=== PATIENT | male | born 1960 | race Caucasian/White ===

== ENCOUNTER 2019-04-14 20:46 | Inpatient (IN) | payer MEDICARE, MEDICAID ==
[~2019-04-14] VITALS: Ht 172.7 cm; Wt 68.5 kg
--- NOTE | 2019-04-14 21:03 | NUR ---
Patient bib [facility] ambulance for med cl to [facility]. Patient is coming from [facility]. A/Ox3. Speech is clear, speaks in complete sentences. No neuro deficits. REspiratory even and unlabored, no cough no sob. No cardiovascular distress noted, all pulses palpable. Denies any n/v/d Patient in bed at lowest positoin, sr upx2, call light within reach. Fall precautions implemented per protocol. Spoke to radha Matthews, and she stated that there are no available sitters.
[2019-04-14] MEDS ORDERED: CHLO25CA22 PO (21:13)
[2019-04-14] MEDS ORDERED: FOLI1TAB16 PO (21:13)
[2019-04-14] MEDS ORDERED: BLOO-140 IN (21:13)
[2019-04-14] MEDS ORDERED: THIA100T88 PO (21:13)
[2019-04-14] MEDS ORDERED: MULT1TAB73 PO (21:13)
[2019-04-14] MEDS ORDERED: ESCI10TA PO (21:13)
[2019-04-14] MEDS ORDERED: BENA10TA11 PO (21:13)
--- NOTE | 2019-04-14 22:42 | NUR ---
HENNY Wooten, here for evaluation
--- NOTE | 2019-04-15 00:31 | NUR ---
Pt. admitted to MHU , under care of Dr. Savage/Dr. Julio Cesar Love. 5150 Hold DTS. Belongs List completed. MRSA swab done.
--- NOTE | 2019-04-15 01:20 | NUR ---
Waiting for admission paperwork. Pt appears in no apparent distress. 1:1 sitter (security) at bedside.
[2019-04-15] MEDS ORDERED: ACETAMINOPHEN 325 MG TABLET PO PRN (02:15)
[2019-04-15] MEDS ORDERED: LORAZEPAM 0.5 MG TABLET PO PRN (02:15)
[2019-04-15] MEDS ORDERED: TEMAZEPAM 7.5 MG CAPSULE PO PRN (02:15)
[2019-04-15] MEDS ORDERED: BLOOD SUGAR DIAGNOSTIC 1 EACH STRIP VI ONE (02:15)
[2019-04-15] MEDS ORDERED: MAGNESIUM HYDROXIDE 30 ML LIQUID UDC PO PRN (02:15)
[2019-04-15] MEDS ORDERED: MAG HYDROX/AL HYDROX/SIMETH 30 ML LIQUID UDC PO PRN (02:15)
--- NOTE | 2019-04-15 03:19 | NUR ---
received to care, on a 72 hour hold for danger to self, from the emergency room, a transfer from [facility]. according to the chart, he moved here from [place], 3 months ago, to be closer to his 2 brothers. he lives alone, in a apartment, with a aircraft part assembler caregiver, who found him down at home, after apparently overdosing on at least a double dose of his insulin, and stating he wanted to . upon arrival at [facility], continued to state that he wanted to , and acknowledged at many times his depression, which worsened when he lost his legs, due to diabetes, 4 years ago. upon arrival on the unit, he appeared confused. had no recollection of where he was, or why he was here. upon further questioning, he did admit to being depressed, and suicidal, but denied the actual suicide attempt. PRN medication was offered for anxiety, but he declined. he is currently up in [facility] for safety monitoring by staff. no distress noted. will continue to monitor closely.
--- NOTE | 2019-04-15 06:00 | NUR ---
slept 2.25 hours. remains asleep. no distress noted.
[2019-04-15] MEDS ORDERED: LORAZEPAM 1 MG TABLET PO PRN (07:15)
[2019-04-15 07:30] VITALS: BP 164/69
[2019-04-15] MEDS: ESCITALOPRAM OXALATE 10 MG TABLET PO SCH (08:38)
[2019-04-15] MEDS ORDERED: DEXTROSE 50% 50 ML DISP.SYRIN IV PRN (10:15)
[2019-04-15] MEDS: BLOOD SUGAR DIAGNOSTIC 1 EACH STRIP VI SCH ×3 (12:07→20:50)
[2019-04-15] MEDS: INSULIN REGULAR, HUMAN 300 UNIT/3 ML VIAL SQ PRN ×2 (12:15→16:35)
[2019-04-15 15:50] VITALS: BP 150/82
--- NOTE | 2019-04-15 16:52 | NUR ---
Initial Discharge Planning: Patient currently resides at home [[address] [address]; [phone]] with his brother Adam Sue [[phone]]. Per brother Adam, patient can benefit from continued care upon discharge and discussed group home home option of [facility] [[address] [place] [address]; ]. Patient verbalized wanting to return home. herbarium worker will continue to meet with patient, and collaborate with patient, family, and MD on a safe and proper discharge plan.
[2019-04-15 19:44] VITALS: BP 143/83
[2019-04-15] MEDS: INSULIN GLARGINE,HUM 300 UNITS/3 ML CARTRIDGE SQ SCH (20:53)
[2019-04-15] MEDS: SIMVASTATIN 20 MG TABLET PO SCH (20:54)
[2019-04-15] MEDS: BENAZEPRIL HCL 10 MG TABLET PO SCH (20:55)
--- NOTE | 2019-04-16 05:40 | NUR ---
Patient slept 8.30 hours. Shower given this am.
[2019-04-16] MEDS: BLOOD SUGAR DIAGNOSTIC 1 EACH STRIP VI SCH ×4 (06:15→20:26)
[2019-04-16 07:30] VITALS: BP 132/75
[2019-04-16 07:47] LABS: CREATININE 1.2 mg/dL (0.6-1.3); PHOSPHOROUS 4.1 mg/dL (2.5-4.9); POTASSIUM 4.2 mmol/L (3.5-5.1)
[2019-04-16 07:52] LABS: BASOPHILS # (AUTO) 0.1 K/uL (0.0-8.0); BASOPHILS % (AUTO) 0.9 % (0.0-2.0); EOSINOPHILS # (AUTO) 0.3 K/uL (0.0-0.7); EOSINOPHILS % (AUTO) 3.1 % (0.0-7.0); HEMATOCRIT 45.5 % (36.7-47.1); HEMOGLOBIN 15.6 g/dL (12.5-16.3); LYMPHOCYTES # (AUTO) 1.7 K/uL (20.0-40.0); LYMPHOCYTES % (AUTO) 14.8 % (20.5-51.5); MEAN CORPUSCULAR HEMOGLOBIN 28.8 uug (23.8-33.4); MEAN CORPUSCULAR HGB CONC 34 g/dL (32.5-36.3); MEAN CORPUSCULAR VOLUME 84.2 fL (73.0-96.2); MONOCYTES # (AUTO) 0.7 K/uL (2.0-10.0); NEUTROPHILS # (AUTO) 8.6 K/uL (1.8-8.9); NEUTROPHILS % (AUTO) 75.2 % (38.5-71.5); PLATELET COUNT (AUTO) 248 K/uL (152-348); WHITE BLOOD COUNT (AUTO) 11.4 K/uL (3.6-10.2)
[2019-04-16 07:59] LABS: THYROID STIMULATING HORMONE 0.73 mIU/mL (0.358-3.740)
[2019-04-16] MEDS: MULTIVITAMINS,THERAPEUTIC TABLET PO SCH (08:20)
[2019-04-16] MEDS: ESCITALOPRAM OXALATE 10 MG TABLET PO SCH (08:20)
[2019-04-16] MEDS: FOLIC ACID 1 MG TABLET PO SCH (08:20)
[2019-04-16] MEDS: THIAMINE HCL 100 MG TABLET PO SCH (08:20)
[2019-04-16] MEDS: BENAZEPRIL HCL 10 MG TABLET PO SCH ×2 (08:22→20:26)
[2019-04-16] MEDS ORDERED: Medication Not On Formulary EA (Multivitamins (Multivitamin) 1 EACH) PO SCH (09:00)
[2019-04-16] MEDS: INSULIN REGULAR, HUMAN 300 UNIT/3 ML VIAL SQ PRN ×3 (09:32→17:45)
[2019-04-16 16:00] VITALS: BP 128/72
[2019-04-16] MEDS: SIMVASTATIN 20 MG TABLET PO SCH (20:25)
[2019-04-16] MEDS: INSULIN GLARGINE,HUM 300 UNITS/3 ML CARTRIDGE SQ SCH (20:28)
[2019-04-16 21:20] VITALS: BP 123/73
[2019-04-17] MEDS: BLOOD SUGAR DIAGNOSTIC 1 EACH STRIP VI SCH ×4 (06:07→21:21)
[2019-04-17 07:45] VITALS: BP 132/64
[2019-04-17] MEDS: THIAMINE HCL 100 MG TABLET PO SCH (08:19)
[2019-04-17] MEDS: ESCITALOPRAM OXALATE 10 MG TABLET PO SCH (08:21)
[2019-04-17] MEDS: MULTIVITAMINS,THERAPEUTIC TABLET PO SCH (08:22)
[2019-04-17] MEDS: BENAZEPRIL HCL 10 MG TABLET PO SCH ×2 (08:24→20:25)
[2019-04-17] MEDS: FOLIC ACID 1 MG TABLET PO SCH (08:24)
--- NOTE | 2019-04-17 12:00 | NUR ---
1130 BS accucheck 173mg/dl, coverage not administered ate only 25% of his meal share. 1300 Patient went back to bed resting. Well monitor s/s hypoglycemia.
[2019-04-17 16:31] VITALS: BP 120/70
[2019-04-17] MEDS: INSULIN REGULAR, HUMAN 300 UNIT/3 ML VIAL SQ PRN (17:12)
[2019-04-17 20:00] VITALS: BP 168/92
--- NOTE | 2019-04-17 20:00 | NUR ---
RECEIVED PATIENT IN HIS BED, HE IS NOTED AWAKE A/O X 3. HE CONTINUE ISOLATIVE, LOW MOOD. UPON INTERVIEW, PATIENT STATED, "I WAS FEELING LONELY THAT IS WHY I OVERDOSE ON MY INSULIN". PATIENT DENIES SI AT THIS TIME. HE STATED THAT HE WOULD LIKE TO GO BACK TO [facility]. PT IS ABLE TO CFS. SAFETY AND FALL PRECAUTION IN PLACE. PT IS REASSURED FOR HIS SAFETY. V/S AND LABS ARE STABLE AT THIS TIME. WILL CONTINUE TO MONITOR CLOSELY.
[2019-04-17] MEDS: SIMVASTATIN 20 MG TABLET PO SCH (20:24)
[2019-04-17] MEDS: INSULIN REGULAR, HUMAN 300 UNITS/3 ML VIAL SQ PRN (21:17)
[2019-04-17] MEDS: INSULIN GLARGINE,HUM 300 UNITS/3 ML CARTRIDGE SQ SCH (21:18)
[2019-04-18 01:04] VITALS: BP 148/82
[2019-04-18] MEDS: BLOOD SUGAR DIAGNOSTIC 1 EACH STRIP VI SCH ×4 (06:54→20:30)
[2019-04-18 07:30] VITALS: BP 117/68
[2019-04-18] MEDS: ESCITALOPRAM OXALATE 10 MG TABLET PO SCH (08:45)
[2019-04-18] MEDS: THIAMINE HCL 100 MG TABLET PO SCH (08:46)
[2019-04-18] MEDS: MULTIVITAMINS,THERAPEUTIC TABLET PO SCH (08:46)
[2019-04-18] MEDS: FOLIC ACID 1 MG TABLET PO SCH (08:46)
[2019-04-18] MEDS: BENAZEPRIL HCL 10 MG TABLET PO SCH ×2 (08:50→20:24)
[2019-04-18] MEDS: INSULIN REGULAR, HUMAN 300 UNIT/3 ML VIAL SQ PRN ×2 (12:18→17:18)
[2019-04-18 16:00] VITALS: BP 130/70
[2019-04-18 19:30] LABS: *BILIRUBIN,URIN NEGATIVE (NEGATIVE); *BLOOD, URINE NEGATIVE (NEGATIVE); *CLARITY,URINE CLEAR (CLEAR); *COLOR,URINE YELLOW (YELLOW); *KETONES,URINE NEGATIVE (NEGATIVE); LEUKOCYTE ESTERASE ,URINE NEGATIVE (NEGATIVE); NITRITE, URINE NEGATIVE (NEGATIVE); PH,URINE 5.5 (5.0-8.0); UGLUCOSE 1+ (NEGATIVE)
[2019-04-18 19:40] LABS: RBC,URINE 0-3 /HPF (0-3); WBC,URINE 0-3 /HPF (0-3)
[2019-04-18 20:10] VITALS: BP 154/74
[2019-04-18] MEDS: SIMVASTATIN 20 MG TABLET PO SCH (20:24)
[2019-04-18] MEDS: INSULIN GLARGINE,HUM 300 UNITS/3 ML CARTRIDGE SQ SCH (20:30)
[2019-04-18] MEDS: INSULIN REGULAR, HUMAN 300 UNITS/3 ML VIAL SQ PRN (20:30)
[2019-04-19] MEDS: BLOOD SUGAR DIAGNOSTIC 1 EACH STRIP VI SCH ×4 (06:44→20:19)
--- NOTE | 2019-04-19 06:44 | NUR ---
patient slept well at night, no PRN given, cooperative and compliant with care and medication regimen. Asking about omeprazole in the AM, will endorse to the day shift.
[2019-04-19 06:52] LABS: BASOPHILS # (AUTO) 0.1 K/uL (0.0-8.0); BASOPHILS % (AUTO) 1.2 % (0.0-2.0); EOSINOPHILS # (AUTO) 0.3 K/uL (0.0-0.7); EOSINOPHILS % (AUTO) 3.2 % (0.0-7.0); HEMATOCRIT 43.6 % (36.7-47.1); HEMOGLOBIN 14.8 g/dL (12.5-16.3); LYMPHOCYTES # (AUTO) 1.8 K/uL (20.0-40.0); LYMPHOCYTES % (AUTO) 19.5 % (20.5-51.5); MEAN CORPUSCULAR HEMOGLOBIN 28.6 uug (23.8-33.4); MEAN CORPUSCULAR HGB CONC 34 g/dL (32.5-36.3); MEAN CORPUSCULAR VOLUME 84.5 fL (73.0-96.2); MONOCYTES # (AUTO) 0.6 K/uL (2.0-10.0); MONOCYTES % (AUTO) 6.8 % (0.0-11.0); NEUTROPHILS # (AUTO) 6.6 K/uL (1.8-8.9); NEUTROPHILS % (AUTO) 69.3 % (38.5-71.5); PLATELET COUNT (AUTO) 227 K/uL (152-348); RED BLOOD CELL COUNT(AUTO) 5.16 MIL/uL (4.06-5.63); WHITE BLOOD COUNT (AUTO) 9.5 K/uL (3.6-10.2)
[2019-04-19 07:11] LABS: CREATININE 1.3 mg/dL (0.6-1.3); PHOSPHOROUS 3.3 mg/dL (2.5-4.9); POTASSIUM 4.6 mmol/L (3.5-5.1)
[2019-04-19 08:02] VITALS: BP 162/63
[2019-04-19] MEDS: THIAMINE HCL 100 MG TABLET PO SCH (09:13)
[2019-04-19] MEDS: ESCITALOPRAM OXALATE 10 MG TABLET PO SCH (09:13)
[2019-04-19] MEDS: MULTIVITAMINS,THERAPEUTIC TABLET PO SCH (09:13)
[2019-04-19] MEDS: FOLIC ACID 1 MG TABLET PO SCH (09:13)
[2019-04-19] MEDS: BENAZEPRIL HCL 10 MG TABLET PO SCH ×2 (09:14→20:17)
[2019-04-19] MEDS: INSULIN REGULAR, HUMAN 300 UNIT/3 ML VIAL SQ PRN ×4 (09:23→20:26)
[2019-04-19 15:52] VITALS: BP 156/85
[2019-04-19 20:13] VITALS: BP 159/90
[2019-04-19] MEDS: SIMVASTATIN 20 MG TABLET PO SCH (20:17)
[2019-04-19] MEDS: INSULIN GLARGINE,HUM 300 UNITS/3 ML CARTRIDGE SQ SCH (20:22)
[2019-04-19] MEDS: INSULIN REGULAR, HUMAN 300 UNITS/3 ML VIAL SQ PRN (20:26)
[2019-04-20] MEDS: BLOOD SUGAR DIAGNOSTIC 1 EACH STRIP VI SCH ×4 (06:40→20:38)
[2019-04-20 07:30] VITALS: BP 145/89
[2019-04-20] MEDS: MULTIVITAMINS,THERAPEUTIC TABLET PO SCH (08:12)
[2019-04-20] MEDS: FOLIC ACID 1 MG TABLET PO SCH (08:12)
[2019-04-20] MEDS: THIAMINE HCL 100 MG TABLET PO SCH (08:12)
[2019-04-20] MEDS: ESCITALOPRAM OXALATE 10 MG TABLET PO SCH (08:12)
[2019-04-20] MEDS: BENAZEPRIL HCL 10 MG TABLET PO SCH ×2 (08:12→20:37)
[2019-04-20] MEDS: INSULIN REGULAR, HUMAN 300 UNIT/3 ML VIAL SQ PRN ×3 (08:27→16:39)
[2019-04-20 17:05] VITALS: BP 139/74
[2019-04-20 20:00] VITALS: BP 134/83
[2019-04-20] MEDS: SIMVASTATIN 20 MG TABLET PO SCH (20:38)
[2019-04-20] MEDS: INSULIN GLARGINE,HUM 300 UNITS/3 ML CARTRIDGE SQ SCH (20:46)
--- NOTE | 2019-04-21 00:46 | NUR ---
RECEIVED PATIENT IN HIS ROOM AND WAS NOTED TO BE DEPRESSED.HE HOWEVER DENIED SI/HI.HE TOOK HIS MEDS AND WAS COOPERATIVE WITH HIS CARE.ON BLOOD SUGAR CHECKS WITH INSULIN COVERAGE PER SLIDING SCALE.HIS BS LEVEL AT 2100 WAS 102.HE WAS GIVEN SOME SNACK BUT DID NOT WANT TO HAVE THE [employer] COVERAGE.ABLE TO MAKE NEEDS KNOWN.CHECKS MADE ON HIM FOR SAFETY.WILL CONTINUE TO MONITOR.
--- NOTE | 2019-04-21 06:41 | NUR ---
HE SLEPT FOR APPROX.05;00HRS.BLOOD SUGAR CHECKED THIS AM IS 156
[2019-04-21 07:30] VITALS: BP 170/83
[2019-04-21] MEDS: BLOOD SUGAR DIAGNOSTIC 1 EACH STRIP VI SCH ×4 (08:34→20:15)
[2019-04-21] MEDS: THIAMINE HCL 100 MG TABLET PO SCH (08:35)
[2019-04-21] MEDS: MULTIVITAMINS,THERAPEUTIC TABLET PO SCH (08:36)
[2019-04-21] MEDS: FOLIC ACID 1 MG TABLET PO SCH (08:36)
[2019-04-21] MEDS: BENAZEPRIL HCL 10 MG TABLET PO SCH ×2 (08:36→20:09)
[2019-04-21] MEDS: ESCITALOPRAM OXALATE 10 MG TABLET PO SCH (08:36)
[2019-04-21] MEDS: INSULIN REGULAR, HUMAN 300 UNIT/3 ML VIAL SQ PRN ×3 (08:39→17:07)
[2019-04-21 16:22] VITALS: BP 161/92
--- NOTE | 2019-04-21 18:35 | NUR ---
patient in activity room a good part of the day. Then went to room to use urinal and ended up in bed before he could be brought back out to activity room and stayed in there the rest of the day.
[2019-04-21 20:00] VITALS: BP 108/64
[2019-04-21] MEDS: INSULIN REGULAR, HUMAN 300 UNITS/3 ML VIAL SQ PRN (20:05)
[2019-04-21] MEDS: INSULIN GLARGINE,HUM 300 UNITS/3 ML CARTRIDGE SQ SCH (20:06)
[2019-04-21] MEDS: SIMVASTATIN 20 MG TABLET PO SCH (20:06)
[2019-04-21] MEDS: METOPROLOL TARTRATE 25 MG TABLET PO SCH (20:09)
[2019-04-22 01:10] VITALS: BP 108/64
[2019-04-22] MEDS: BLOOD SUGAR DIAGNOSTIC 1 EACH STRIP VI SCH ×4 (06:39→20:19)
[2019-04-22 08:07] VITALS: BP 166/83
[2019-04-22] MEDS: MULTIVITAMINS,THERAPEUTIC TABLET PO SCH (08:39)
[2019-04-22] MEDS: ESCITALOPRAM OXALATE 10 MG TABLET PO SCH (08:39)
[2019-04-22] MEDS: THIAMINE HCL 100 MG TABLET PO SCH (08:39)
[2019-04-22] MEDS: METOPROLOL TARTRATE 25 MG TABLET PO SCH ×2 (08:40→20:18)
[2019-04-22] MEDS: FOLIC ACID 1 MG TABLET PO SCH (08:40)
[2019-04-22] MEDS: BENAZEPRIL HCL 10 MG TABLET PO SCH ×2 (08:42→20:17)
[2019-04-22] MEDS ORDERED: CLONIDINE HCL 0.1 MG TABLET PO PRN (14:30)
[2019-04-22 15:16] VITALS: BP 145/78
[2019-04-22] MEDS: INSULIN REGULAR, HUMAN 300 UNIT/3 ML VIAL SQ PRN (17:26)
[2019-04-22 20:16] VITALS: BP 147/68
[2019-04-22] MEDS: SIMVASTATIN 20 MG TABLET PO SCH (20:17)
[2019-04-22] MEDS: INSULIN GLARGINE,HUM 300 UNITS/3 ML CARTRIDGE SQ SCH (20:21)
--- NOTE | 2019-04-23 05:39 | NUR ---
Patient slept most of the night. Up early for a shower. Now in activity room watching TV. No acute distress noted. Continuing to monitor for SI. closely, frequent rounding being done.
[2019-04-23] MEDS: BLOOD SUGAR DIAGNOSTIC 1 EACH STRIP VI SCH ×4 (06:17→20:26)
[2019-04-23 08:00] VITALS: BP 109/63
[2019-04-23] MEDS: BENAZEPRIL HCL 10 MG TABLET PO SCH ×2 (09:18→20:25)
[2019-04-23] MEDS: MULTIVITAMINS,THERAPEUTIC TABLET PO SCH (09:18)
[2019-04-23] MEDS: ESCITALOPRAM OXALATE 10 MG TABLET PO SCH (09:18)
[2019-04-23] MEDS: FOLIC ACID 1 MG TABLET PO SCH (09:23)
[2019-04-23] MEDS: METOPROLOL TARTRATE 25 MG TABLET PO SCH ×2 (09:23→20:23)
[2019-04-23] MEDS: THIAMINE HCL 100 MG TABLET PO SCH (09:24)
[2019-04-23] MEDS: INSULIN REGULAR, HUMAN 300 UNIT/3 ML VIAL SQ PRN ×2 (09:28→12:45)
[2019-04-23 16:21] VITALS: BP 143/81
[2019-04-23] MEDS: SIMVASTATIN 20 MG TABLET PO SCH (20:22)
[2019-04-23] MEDS: INSULIN GLARGINE,HUM 300 UNITS/3 ML CARTRIDGE SQ SCH (20:31)
[2019-04-23 21:31] VITALS: BP 108/54
--- NOTE | 2019-04-23 21:45 | NUR ---
Patients b/p was 108/54, routine dose of Lotensin held. Patients blood glucose was 71. PM dose of 20units Lantus also held. Snack given to patient. No acute distress noted. Continuing to monitor patient.
[2019-04-24] MEDS: BLOOD SUGAR DIAGNOSTIC 1 EACH STRIP VI SCH ×4 (06:20→20:58)
[2019-04-24] MEDS: ESCITALOPRAM OXALATE 10 MG TABLET PO SCH (09:12)
[2019-04-24] MEDS: MULTIVITAMINS,THERAPEUTIC TABLET PO SCH (09:12)
[2019-04-24] MEDS: METOPROLOL TARTRATE 25 MG TABLET PO SCH ×2 (09:13→20:52)
[2019-04-24] MEDS: THIAMINE HCL 100 MG TABLET PO SCH (09:14)
[2019-04-24] MEDS: FOLIC ACID 1 MG TABLET PO SCH (09:14)
[2019-04-24] MEDS: BENAZEPRIL HCL 10 MG TABLET PO SCH ×2 (09:16→20:52)
[2019-04-24 10:03] VITALS: BP 156/73
[2019-04-24] MEDS: INSULIN REGULAR, HUMAN 300 UNIT/3 ML VIAL SQ PRN ×2 (12:51→17:04)
[2019-04-24 16:16] VITALS: BP 130/57
[2019-04-24] MEDS: SIMVASTATIN 20 MG TABLET PO SCH (20:53)
[2019-04-24 21:23] VITALS: BP 137/72
[2019-04-24] MEDS: INSULIN GLARGINE,HUM 300 UNITS/3 ML CARTRIDGE SQ SCH (21:33)
--- NOTE | 2019-04-24 22:49 | NUR ---
PATIENT RECEIVED IN BED AWAKE. PATIENT IS PLEASANT AND CALM UPON APPROACH. PATIENT DENIES SI/HI WILL CONTINUE TO MONITOR. PATIENT COMPLAINT WITH MEDICATION. NO APPARENT DISTRESS WILL CONTINUE TO MONITOR. PATIENT DENIES PAIN AT THIS TIME, WILL CONTINUE TO MONITOR. BED IN LOWEST POSITION, BED LOCKED, AND BED ALARM ON WHILE IN BED.
[2019-04-25] MEDS: BLOOD SUGAR DIAGNOSTIC 1 EACH STRIP VI SCH (06:38)
[2019-04-25 08:44] VITALS: BP 133/76
[2019-04-25] MEDS: MULTIVITAMINS,THERAPEUTIC TABLET PO SCH (08:54)
[2019-04-25] MEDS: FOLIC ACID 1 MG TABLET PO SCH (08:54)
[2019-04-25] MEDS: ESCITALOPRAM OXALATE 10 MG TABLET PO SCH (08:54)
[2019-04-25] MEDS: METOPROLOL TARTRATE 25 MG TABLET PO SCH (08:58)
[2019-04-25 09:00] VITALS: BP 133/76
[2019-04-25] MEDS: BENAZEPRIL HCL 10 MG TABLET PO SCH (09:00)
[2019-04-25] MEDS: THIAMINE HCL 100 MG TABLET PO SCH (09:04)
--- NOTE | 2019-04-25 10:44 | NUR ---
Discharge Plan: Patient will be discharged today to [facility] Acute Rehabilitation Unit.Patient to be transferred to Acute Rehab Unit at 12:00pm. Spoke to Jl, [employer] who stated unit is ready to accept patient today. Spoke with patients brother, Adam Sue [[phone]] who is agreeable with discharge plan. Patient is alert and oriented x3-4 and is agreeable with discharge plan. This senior copywriter will continue to follow patient in Acute Rehab Unit and continue setting up mental health resources for patient.
--- NOTE | 2019-04-25 11:32 | NUR ---
FIREARMS REPORT: Equipment [employer] completed and submitted a [employer] firearms report for 5150 DTS certification. A copy of report has been placed in patient chart.
--- NOTE | 2019-04-25 12:43 | NUR ---
1130 PATIENT WILL BE DISCHARGED TO ACUTE REHAB UNIT OF THIS HOSPITAL, REPORT GIVEN TO VALERIANO CISNEROS REGARDING MEDICATIONS TO CONTINUE, MENTAL /MEDICAL STATUS OF THE PATIENT- NURSE VERBALIZED UNDERSTANDING.1140 bRING PATIENT TO ARU PER W/C, ALL BELONGINGS GIVEN AND SIGNED BY PATIENT.
[2019-04-25] MEDS ORDERED: CLON0.1T PO (12:57)
[2019-04-25] MEDS ORDERED: ESCI20TA37 PO (12:57)
[2019-04-25] MEDS ORDERED: METO37.5 PO (12:57)
[2019-04-25] MEDS ORDERED: SIMV-46 PO (12:57)
[2019-04-25] MEDS ORDERED: INSU100V7 SQ (12:57)
== END 2019-04-25 11:45 | DRG 885 ==
LOC: ER 20:55 → GPS 23:55
PROVIDERS: ADMIT Psychiatry & Neurology Psychiatry; ATTEND Student in an Organized Health Care Education/Training Program
DX: F33.2 Major depressive disorder, recurrent severe without psychotic features (principal); E11.65 Type 2 diabetes mellitus with hyperglycemia; I50.20 Unspecified systolic (congestive) heart failure; T38.3X2D Poisoning by insulin and oral hypoglycemic [antidiabetic] drugs, intentional self-harm, subsequent encounter; Z89.512 Acquired absence of left leg below knee; Z89.511 Acquired absence of right leg below knee; F10.20 Alcohol dependence, uncomplicated; Y90.9 Presence of alcohol in blood, level not specified; Z87.891 Personal history of nicotine dependence; H40.9 Unspecified glaucoma; H54.62 Unqualified visual loss, left eye, normal vision right eye; E78.5 Hyperlipidemia, unspecified; H54.8 Legal blindness, as defined in USA
CPT/HCPCS: 36415; 71045; 83735; 84100; 84443; 85025; 93005; 93307; A4663; J1815

== ENCOUNTER 2019-04-25 12:05 | Inpatient (IN) | payer MEDICARE, MEDICAID ==
[~2019-04-25] VITALS: Ht 167.6 cm; Wt 43.5 kg
[~2019-04-25 12:05] MED LIST: BENA10TA11 PO; BLOO-140 IN; CHLO25CA22 PO; FOLI1TAB16 PO; MULT1TAB73 PO; THIA100T88 PO
[2019-04-25] MEDS ORDERED: SIMV-46 PO (12:57)
[2019-04-25] MEDS ORDERED: CLON0.1T PO (12:57)
[2019-04-25] MEDS ORDERED: METO37.5 PO (12:57)
[2019-04-25] MEDS ORDERED: INSU100V7 SQ (12:57)
[2019-04-25] MEDS ORDERED: ESCI20TA37 PO (12:57)
[2019-04-25] MEDS ORDERED: DEXTROSE 50% 50 ML DISP.SYRIN IV PRN ×2 (13:00→14:30)
[2019-04-25] MEDS ORDERED: CLONIDINE HCL 0.1 MG TABLET PO PRN (14:30)
[2019-04-25] MEDS ORDERED: INSULIN REGULAR, HUMAN 300 UNIT/3 ML VIAL SQ PRN (14:30)
[2019-04-25] MEDS ORDERED: INSULIN REGULAR, HUMAN 300 UNITS/3 ML VIAL SQ PRN (14:30)
--- NOTE | 2019-04-25 15:25 | NUR ---
Patient admitted around 1pm via wheelchair in stable condition from MHU in stable condition with DX: Bilateral knee amputation. history of depression and suicidal ideation. alert and oriented x4. skin intact. On accucheck, insulin protocol and insulin sliding scale. For therapy evaluation, request for prosthesis consultation Continent of bladder and bowel.MD Santos and SKIN FITTER Iain aware. will continue monitor
[2019-04-25 16:18] VITALS: BP 155/57
[2019-04-25] MEDS ORDERED: BLOOD SUGAR DIAGNOSTIC 1 EACH STRIP VI SCH (16:30)
[2019-04-25] MEDS: BLOOD SUGAR DIAGNOSTIC 1 EACH STRIP VI SCH ×2 (16:42→20:36)
[2019-04-25] MEDS: INSULIN REGULAR, HUMAN 300 UNIT/3 ML VIAL SQ PRN (16:45)
[2019-04-25] MEDS: BENAZEPRIL HCL 10 MG TABLET PO SCH (17:38)
[2019-04-25 20:20] VITALS: BP 159/87
[2019-04-25] MEDS: SIMVASTATIN 20 MG TABLET PO SCH (20:32)
[2019-04-25] MEDS: METOPROLOL TARTRATE 25 MG TABLET PO SCH (20:33)
[2019-04-25] MEDS: INSULIN GLARGINE,HUM 300 UNITS/3 ML CARTRIDGE SQ SCH (20:35)
--- NOTE | 2019-04-26 03:30 | NUR ---
Received patient in bed, awake, alert and oriented x4. Not in acute distress or SOB. No s/sx of hypo/hyperglycemia. Safety measures maintained. Bed in low and lock position, alarm on, side rails up x2 for safety. Educated patient to use call light. Call light and frequently used items within reach. Will endorse to the Am nurse for continuity of care.
[2019-04-26 05:09] VITALS: BP 121/57
[2019-04-26] MEDS: BLOOD SUGAR DIAGNOSTIC 1 EACH STRIP VI SCH ×4 (07:04→20:28)
[2019-04-26 08:00] VITALS: BP 135/59
[2019-04-26] MEDS: MULTIVITAMINS,THERAPEUTIC TABLET PO SCH (08:24)
[2019-04-26] MEDS: THIAMINE HCL 100 MG TABLET PO SCH (08:25)
[2019-04-26] MEDS: BENAZEPRIL HCL 10 MG TABLET PO SCH ×2 (08:25→16:59)
[2019-04-26] MEDS: ESCITALOPRAM OXALATE 10 MG TABLET PO SCH (08:26)
[2019-04-26] MEDS: METOPROLOL TARTRATE 25 MG TABLET PO SCH ×2 (08:27→20:24)
[2019-04-26] MEDS: FOLIC ACID 1 MG TABLET PO SCH (08:27)
[2019-04-26] MEDS: INSULIN REGULAR, HUMAN 300 UNIT/3 ML VIAL SQ PRN ×3 (08:41→17:04)
[2019-04-26] MEDS ORDERED: Medication Not On Formulary EA (Multivitamins (Multivitamin) 1 EACH) PO SCH (09:00)
[2019-04-26 17:22] VITALS: BP 116/64
--- NOTE | 2019-04-26 19:32 | NUR ---
Received patient in room, Pt. is A&O x4, able to express needs verbally. In NO acute distress. Patient admitted from MHU. Vital signs taken and stable. BS check done and administered insulin per sliding scale. No episodes of hypoglycemia noted. Patient with Bilateral BKA and prosthesis. Patient on PT/OT services. Able to ambulate with a walker and max assist. Assisted with ADLs, NO complains of pain during shift. Due medications administered and tolerated. Pt. visited by prosthesis specialist during shift. Needs attended, safety measures in place. Endorsed to next shift and will continue with care.
[2019-04-26] MEDS: SIMVASTATIN 20 MG TABLET PO SCH (20:24)
[2019-04-26] MEDS: INSULIN GLARGINE,HUM 300 UNITS/3 ML CARTRIDGE SQ SCH (20:28)
[2019-04-26] MEDS: INSULIN REGULAR, HUMAN 300 UNITS/3 ML VIAL SQ PRN (20:32)
[2019-04-26 20:51] VITALS: BP 114/63
[2019-04-27 00:40] VITALS: BP 117/74
[2019-04-27] MEDS: BLOOD SUGAR DIAGNOSTIC 1 EACH STRIP VI SCH ×4 (06:37→20:17)
[2019-04-27 08:00] VITALS: BP 151/65
[2019-04-27] MEDS: BENAZEPRIL HCL 10 MG TABLET PO SCH ×2 (08:06→17:02)
[2019-04-27] MEDS: MULTIVITAMINS,THERAPEUTIC TABLET PO SCH (08:06)
[2019-04-27] MEDS: ESCITALOPRAM OXALATE 10 MG TABLET PO SCH (08:06)
[2019-04-27] MEDS: FOLIC ACID 1 MG TABLET PO SCH (08:06)
[2019-04-27] MEDS: THIAMINE HCL 100 MG TABLET PO SCH (08:06)
--- NOTE | 2019-04-27 08:06 | NUR ---
Patient assisted self to edge of bed for breakfast, no complaints of pain, no signs of distress noted, call light in reach, bed locked and in lowest position, took all AM medications, all needs met at this time
[2019-04-27] MEDS: METOPROLOL TARTRATE 25 MG TABLET PO SCH ×2 (08:07→20:17)
[2019-04-27 15:18] LABS: BASOPHILS # (AUTO) 0.1 K/uL (0.0-8.0); BASOPHILS % (AUTO) 1.2 % (0.0-2.0); EOSINOPHILS # (AUTO) 0.3 K/uL (0.0-0.7); EOSINOPHILS % (AUTO) 3.5 % (0.0-7.0); HEMATOCRIT 42.2 % (36.7-47.1); HEMOGLOBIN 14.1 g/dL (12.5-16.3); LYMPHOCYTES # (AUTO) 1.8 K/uL (20.0-40.0); LYMPHOCYTES % (AUTO) 21.6 % (20.5-51.5); MEAN CORPUSCULAR HEMOGLOBIN 28.6 uug (23.8-33.4); MEAN CORPUSCULAR HGB CONC 34 g/dL (32.5-36.3); MEAN CORPUSCULAR VOLUME 85.6 fL (73.0-96.2); MONOCYTES # (AUTO) 0.6 K/uL (2.0-10.0); MONOCYTES % (AUTO) 7.4 % (0.0-11.0); NEUTROPHILS # (AUTO) 5.6 K/uL (1.8-8.9); NEUTROPHILS % (AUTO) 66.3 % (38.5-71.5); PLATELET COUNT (AUTO) 217 K/uL (152-348); RED BLOOD CELL COUNT(AUTO) 4.93 MIL/uL (4.06-5.63); WHITE BLOOD COUNT (AUTO) 8.4 K/uL (3.6-10.2)
[2019-04-27 15:33] LABS: BILIRUBIN,TOTAL 0.4 mg/dL (0.2-1.0); CREATININE 1.5 mg/dL (0.6-1.3); POTASSIUM 4.4 mmol/L (3.5-5.1); TOTAL PROTEIN, SERUM 6.8 g/dL (6.4-8.2)
[2019-04-27] MEDS: INSULIN REGULAR, HUMAN 300 UNIT/3 ML VIAL SQ PRN (17:05)
[2019-04-27 17:46] VITALS: BP 161/71
[2019-04-27] MEDS: SIMVASTATIN 20 MG TABLET PO SCH (20:17)
[2019-04-27] MEDS: INSULIN REGULAR, HUMAN 300 UNITS/3 ML VIAL SQ PRN (20:24)
[2019-04-27] MEDS: INSULIN GLARGINE,HUM 300 UNITS/3 ML CARTRIDGE SQ SCH (20:24)
[2019-04-27 20:25] VITALS: BP 156/61
[2019-04-28 05:06] VITALS: BP 145/76
[2019-04-28] MEDS: BLOOD SUGAR DIAGNOSTIC 1 EACH STRIP VI SCH ×4 (06:30→21:13)
[2019-04-28] MEDS: ESCITALOPRAM OXALATE 10 MG TABLET PO SCH (08:16)
[2019-04-28] MEDS: THIAMINE HCL 100 MG TABLET PO SCH (08:16)
[2019-04-28] MEDS: METOPROLOL TARTRATE 25 MG TABLET PO SCH ×2 (08:17→21:09)
[2019-04-28] MEDS: MULTIVITAMINS,THERAPEUTIC TABLET PO SCH (08:17)
[2019-04-28] MEDS: BENAZEPRIL HCL 10 MG TABLET PO SCH ×2 (08:17→17:06)
[2019-04-28] MEDS: FOLIC ACID 1 MG TABLET PO SCH (08:17)
--- NOTE | 2019-04-28 08:49 | NUR ---
Patient noted resting in bed, assisted to sitting position in bed and set up for breakfast, no complaints of pain, no signs of distress noted, call light in reach, all needs met at this time
[2019-04-28 09:24] VITALS: BP 164/80
--- NOTE | 2019-04-28 11:40 | NUR ---
INDIVIDUALIZE PLAN OF CARE
[2019-04-28] MEDS: INSULIN REGULAR, HUMAN 300 UNIT/3 ML VIAL SQ PRN ×2 (12:04→17:11)
[2019-04-28 16:47] VITALS: BP 164/68
--- NOTE | 2019-04-28 19:35 | NUR ---
Patient received in bed, AAO x3. Not in acute distress or SOB. Able to make needs known. On room air. VS stable. No complain of pain at this time. Physical assessment done. Fall prevention observed. Safety measures maintained. Bed in low and lock position, alarm on, side rails up x2 for safety. Educated patient to use call light. Call light and frequently used items within reach. Continue to monitor.
[2019-04-28 19:39] VITALS: BP 154/94
[2019-04-28] MEDS: SIMVASTATIN 20 MG TABLET PO SCH (21:08)
[2019-04-28] MEDS: INSULIN GLARGINE,HUM 300 UNITS/3 ML CARTRIDGE SQ SCH (21:14)
[2019-04-28] MEDS: INSULIN REGULAR, HUMAN 300 UNITS/3 ML VIAL SQ PRN (21:15)
--- NOTE | 2019-04-29 04:41 | NUR ---
Patient was stable during the shift and had a good sleep last night. Not in acute distress or SOB. On room air. VS checked, stable. No complain of pain. All due medications given and well tolerated. Accucheck @2100 BS: 279 covered by 6 units insulin based on sliding scale. Lantus was injected. All needs attended promptly. Physical assessment done. Fall prevention observed. Safety measures maintained. Bed in low and lock position, alarm on, side rails up x2 for safety. Call light and frequently used items within reach. Continue to monitor and will endorse to the day shift nurse accordingly.
[2019-04-29 06:38] VITALS: BP 136/74
[2019-04-29] MEDS: BLOOD SUGAR DIAGNOSTIC 1 EACH STRIP VI SCH ×4 (06:38→20:50)
[2019-04-29 07:11] LABS: BASOPHILS # (AUTO) 0.1 K/uL (0.0-8.0); BASOPHILS % (AUTO) 0.9 % (0.0-2.0); EOSINOPHILS # (AUTO) 0.3 K/uL (0.0-0.7); EOSINOPHILS % (AUTO) 3.1 % (0.0-7.0); HEMATOCRIT 42.8 % (36.7-47.1); HEMOGLOBIN 14.5 g/dL (12.5-16.3); LYMPHOCYTES % (AUTO) 23.1 % (20.5-51.5); MEAN CORPUSCULAR HEMOGLOBIN 28.8 uug (23.8-33.4); MEAN CORPUSCULAR HGB CONC 34 g/dL (32.5-36.3); MEAN CORPUSCULAR VOLUME 85.4 fL (73.0-96.2); MONOCYTES # (AUTO) 0.7 K/uL (2.0-10.0); MONOCYTES % (AUTO) 8.1 % (0.0-11.0); NEUTROPHILS # (AUTO) 5.7 K/uL (1.8-8.9); NEUTROPHILS % (AUTO) 64.8 % (38.5-71.5); PLATELET COUNT (AUTO) 220 K/uL (152-348); RED BLOOD CELL COUNT(AUTO) 5.02 MIL/uL (4.06-5.63); WHITE BLOOD COUNT (AUTO) 8.8 K/uL (3.6-10.2)
[2019-04-29 07:20] LABS: CREATININE 1.3 mg/dL (0.6-1.3); MAGNESIUM 1.7 mg/dL (1.8-2.4)
[2019-04-29 07:36] VITALS: BP 163/53
[2019-04-29] MEDS: MULTIVITAMINS,THERAPEUTIC TABLET PO SCH (08:44)
[2019-04-29] MEDS: FOLIC ACID 1 MG TABLET PO SCH (08:44)
[2019-04-29] MEDS: BENAZEPRIL HCL 10 MG TABLET PO SCH ×2 (08:44→16:11)
[2019-04-29] MEDS: ESCITALOPRAM OXALATE 10 MG TABLET PO SCH (08:47)
[2019-04-29] MEDS: METOPROLOL TARTRATE 25 MG TABLET PO SCH ×2 (08:47→20:20)
[2019-04-29] MEDS: THIAMINE HCL 100 MG TABLET PO SCH (08:48)
[2019-04-29] MEDS: INSULIN REGULAR, HUMAN 300 UNIT/3 ML VIAL SQ PRN ×3 (08:51→16:10)
[2019-04-29] MEDS ORDERED: MAGNESIUM OXIDE 400 MG TABLET PO ONE (09:45)
[2019-04-29 15:36] VITALS: BP 106/65
--- NOTE | 2019-04-29 16:35 | NUR ---
Patient continue therapy for ambulation and ADL ability. Continue behavioral monitoring. Continue medicine for depression. tolerated well. Continue blood sugar monitoring with sliding scale protocol. not in distress. will continue monitor
--- NOTE | 2019-04-29 16:44 | NUR ---
Magnesium 1.7 result replace Magnesium 400mg once given. will continue monitor
[2019-04-29 19:30] VITALS: BP 146/74
--- NOTE | 2019-04-29 19:45 | NUR ---
Awake , very pleasant. Portuguese speaking with little Tajik. Able to make needs known. Denies any pain/discomforts at this time. No s/s of hypo/hyperglycemia. Safety measures and fall precaution maintained. Continue care as planned.
[2019-04-29] MEDS: SIMVASTATIN 20 MG TABLET PO SCH (20:19)
[2019-04-29] MEDS: INSULIN GLARGINE,HUM 300 UNITS/3 ML CARTRIDGE SQ SCH (20:51)
[2019-04-30 05:42] VITALS: BP 163/50
--- NOTE | 2019-04-30 06:10 | NUR ---
Catapres given as needed for BP 163/50. Patient denied s/s of hypertension. Will monitor.
[2019-04-30] MEDS: BLOOD SUGAR DIAGNOSTIC 1 EACH STRIP VI SCH ×4 (06:31→20:24)
--- NOTE | 2019-04-30 06:34 | NUR ---
Shift End Report: Slept good. Bp today quite elevated, Catapres given as ordered. Will monitor and endorse to oncoming shift. No complaint presented all night. No s/s of hypo/hyperglycemia. All needs attended and met. No significant event reported. Continue current rehab plan of care.
[2019-04-30 07:30] VITALS: BP 140/45
[2019-04-30] MEDS: ESCITALOPRAM OXALATE 10 MG TABLET PO SCH (08:18)
[2019-04-30] MEDS: BENAZEPRIL HCL 10 MG TABLET PO SCH ×2 (08:18→16:37)
[2019-04-30] MEDS: MULTIVITAMINS,THERAPEUTIC TABLET PO SCH (08:18)
[2019-04-30] MEDS: FOLIC ACID 1 MG TABLET PO SCH (08:18)
[2019-04-30] MEDS: THIAMINE HCL 100 MG TABLET PO SCH (08:19)
[2019-04-30] MEDS: METOPROLOL TARTRATE 25 MG TABLET PO SCH ×2 (08:19→20:19)
[2019-04-30] MEDS: AMLODIPINE 2.5 MG TABLET PO SCH (08:20)
--- NOTE | 2019-04-30 15:54 | NUR ---
Patient continue therapy for ADL, ambulation and unsteady gait. Continue pain management if needed. no signs of depression during rounds. will continue monitor
[2019-04-30] MEDS: INSULIN REGULAR, HUMAN 300 UNIT/3 ML VIAL SQ PRN (16:40)
[2019-04-30 16:54] VITALS: BP 147/66
[2019-04-30] MEDS: SIMVASTATIN 20 MG TABLET PO SCH (20:18)
[2019-04-30] MEDS: INSULIN REGULAR, HUMAN 300 UNITS/3 ML VIAL SQ PRN (20:20)
[2019-04-30] MEDS: INSULIN GLARGINE,HUM 300 UNITS/3 ML CARTRIDGE SQ SCH (20:22)
[2019-04-30 21:38] VITALS: BP 133/75
[2019-05-01 04:00] VITALS: BP 115/64
--- NOTE | 2019-05-01 05:40 | NUR ---
Patient was stable during the shift and had a good sleep last night. Not in acute distress or SOB. On room air. VS checked, stable. No complain of pain. All due medications given and well tolerated. Accucheck done @2100 BS: 279 covered by 6 units insulin based on sliding scale, Lantus injected as well. All needs attended promptly. Physical assessment done. Fall prevention observed. Safety measures maintained. Bed in low and lock position, alarm on, side rails up x2 for safety. Call light and frequently used items within reach. Continue to monitor and will endorse to the day shift nurse accordingly.
[2019-05-01] MEDS: BLOOD SUGAR DIAGNOSTIC 1 EACH STRIP VI SCH ×4 (06:33→20:27)
[2019-05-01 07:42] VITALS: BP 101/59
[2019-05-01] MEDS: MULTIVITAMINS,THERAPEUTIC TABLET PO SCH (08:39)
[2019-05-01] MEDS: FOLIC ACID 1 MG TABLET PO SCH (08:40)
[2019-05-01] MEDS: ESCITALOPRAM OXALATE 10 MG TABLET PO SCH (08:40)
[2019-05-01] MEDS: METOPROLOL TARTRATE 25 MG TABLET PO SCH ×2 (08:40→20:23)
[2019-05-01] MEDS: THIAMINE HCL 100 MG TABLET PO SCH (08:42)
[2019-05-01] MEDS: BENAZEPRIL HCL 10 MG TABLET PO SCH ×2 (08:42→17:53)
[2019-05-01] MEDS: AMLODIPINE 2.5 MG TABLET PO SCH (08:43)
[2019-05-01] MEDS: INSULIN REGULAR, HUMAN 300 UNIT/3 ML VIAL SQ PRN ×2 (12:11→17:58)
[2019-05-01 16:16] VITALS: BP 147/78
--- NOTE | 2019-05-01 19:30 | NUR ---
Patient received in bed, resting. Alert and oriented x 4. Albanian speaking, but able to make needs known in Jordanian. No C/O pain or SOB at this time. Side rails up bilaterally for safety. Call light and frequently used items within reach. Will continue to monitor.
[2019-05-01 19:51] VITALS: BP 157/88
[2019-05-01] MEDS: SIMVASTATIN 20 MG TABLET PO SCH (20:23)
[2019-05-01] MEDS: INSULIN REGULAR, HUMAN 300 UNITS/3 ML VIAL SQ PRN (20:25)
[2019-05-01] MEDS: INSULIN GLARGINE,HUM 300 UNITS/3 ML CARTRIDGE SQ SCH (20:25)
[2019-05-02 04:52] VITALS: BP 118/61
[2019-05-02] MEDS: BLOOD SUGAR DIAGNOSTIC 1 EACH STRIP VI SCH ×4 (06:31→21:01)
[2019-05-02 07:56] VITALS: BP 146/69
[2019-05-02] MEDS: BENAZEPRIL HCL 10 MG TABLET PO SCH ×2 (09:38→18:57)
[2019-05-02] MEDS: THIAMINE HCL 100 MG TABLET PO SCH (09:38)
[2019-05-02] MEDS: FOLIC ACID 1 MG TABLET PO SCH (09:39)
[2019-05-02] MEDS: ESCITALOPRAM OXALATE 10 MG TABLET PO SCH (09:39)
[2019-05-02] MEDS: MULTIVITAMINS,THERAPEUTIC TABLET PO SCH (09:39)
[2019-05-02] MEDS: METOPROLOL TARTRATE 25 MG TABLET PO SCH ×2 (09:41→20:55)
[2019-05-02] MEDS: AMLODIPINE 2.5 MG TABLET PO SCH (09:44)
--- NOTE | 2019-05-02 13:55 | NUR ---
PER DIETARY REQUEST DIET CHANGED TO 45GM CARB FROM 60GM
--- NOTE | 2019-05-02 15:26 | NUR ---
INTERDISCIPLINARY TEAM CONFERENCE
[2019-05-02 15:45] VITALS: BP 157/49
[2019-05-02 20:55] VITALS: BP 141/66
[2019-05-02] MEDS: SIMVASTATIN 20 MG TABLET PO SCH (20:55)
[2019-05-02] MEDS: INSULIN REGULAR, HUMAN 300 UNITS/3 ML VIAL SQ PRN (20:57)
[2019-05-02] MEDS: INSULIN GLARGINE,HUM 300 UNITS/3 ML CARTRIDGE SQ SCH (20:59)
--- NOTE | 2019-05-03 04:45 | NUR ---
Patient was stable during the shift and had a good sleep last night. Not in acute distress or SOB. On room air. VS checked, stable. No complain of pain. All due medications given and well tolerated. Accucheck @2100 BS: 152 covered by 2 units insulin based on sliding scale. Lantus was injected. All needs attended promptly. Physical assessment done. Fall prevention observed. Safety measures maintained. Bed in low and lock position, alarm on, side rails up x2 for safety. Call light and frequently used items within reach. Continue to monitor and will endorse to the day shift nurse accordingly.
[2019-05-03 05:45] VITALS: BP 133/60
[2019-05-03] MEDS: BLOOD SUGAR DIAGNOSTIC 1 EACH STRIP VI SCH ×4 (06:43→20:23)
[2019-05-03 07:37] LABS: BASOPHILS # (AUTO) 0.1 K/uL (0.0-8.0); BASOPHILS % (AUTO) 0.8 % (0.0-2.0); EOSINOPHILS # (AUTO) 0.3 K/uL (0.0-0.7); EOSINOPHILS % (AUTO) 3.4 % (0.0-7.0); HEMATOCRIT 41.8 % (36.7-47.1); HEMOGLOBIN 14.2 g/dL (12.5-16.3); LYMPHOCYTES # (AUTO) 2.3 K/uL (20.0-40.0); LYMPHOCYTES % (AUTO) 26.6 % (20.5-51.5); MEAN CORPUSCULAR HGB CONC 34 g/dL (32.5-36.3); MEAN CORPUSCULAR VOLUME 85.2 fL (73.0-96.2); MONOCYTES # (AUTO) 0.6 K/uL (2.0-10.0); MONOCYTES % (AUTO) 7.3 % (0.0-11.0); NEUTROPHILS # (AUTO) 5.3 K/uL (1.8-8.9); NEUTROPHILS % (AUTO) 61.9 % (38.5-71.5); PLATELET COUNT (AUTO) 212 K/uL (152-348); RED BLOOD CELL COUNT(AUTO) 4.91 MIL/uL (4.06-5.63); WHITE BLOOD COUNT (AUTO) 8.5 K/uL (3.6-10.2)
[2019-05-03 07:53] LABS: CREATININE 1.2 mg/dL (0.6-1.3); PHOSPHOROUS 3.5 mg/dL (2.5-4.9); POTASSIUM 3.7 mmol/L (3.5-5.1)
[2019-05-03 08:00] VITALS: BP 118/66
[2019-05-03] MEDS: METOPROLOL TARTRATE 25 MG TABLET PO SCH ×2 (09:00→20:19)
[2019-05-03] MEDS: BENAZEPRIL HCL 10 MG TABLET PO SCH ×2 (09:00→17:08)
[2019-05-03] MEDS: AMLODIPINE 2.5 MG TABLET PO SCH (09:00)
[2019-05-03] MEDS: THIAMINE HCL 100 MG TABLET PO SCH (09:32)
[2019-05-03] MEDS: MULTIVITAMINS,THERAPEUTIC TABLET PO SCH (09:34)
[2019-05-03] MEDS: FOLIC ACID 1 MG TABLET PO SCH (09:34)
[2019-05-03] MEDS: ESCITALOPRAM OXALATE 10 MG TABLET PO SCH (09:35)
[2019-05-03 16:42] VITALS: BP 128/70
[2019-05-03] MEDS: INSULIN REGULAR, HUMAN 300 UNIT/3 ML VIAL SQ PRN (17:10)
[2019-05-03 19:35] VITALS: BP 110/66
--- NOTE | 2019-05-03 19:40 | NUR ---
Patient received in bed, AAO x3. Not in acute distress or SOB. Able to make needs known. On room air. VS stable. No complain of pain at this time. Physical assessment done. Fall prevention observed. Safety measures maintained. Bed in low and lock position, alarm on, side rails up x2 for safety. Call light and frequently used items within reach. Continue to monitor. -+ Call light Educated patient to use call light. Call light and frequently used items within reach. Continue to monitor.
[2019-05-03] MEDS: SIMVASTATIN 20 MG TABLET PO SCH (20:19)
[2019-05-03] MEDS: INSULIN GLARGINE,HUM 300 UNITS/3 ML CARTRIDGE SQ SCH (20:21)
[2019-05-04 04:55] VITALS: BP 132/65
--- NOTE | 2019-05-04 05:11 | NUR ---
Patient was stable during the shift and had a good sleep last night. Not in acute distress or SOB. On room air. VS stable. No complain of pain. All due medications given and well tolerated. Accucheck @2100 BS:113, no insulin coverage based on sliding scale. Lantus was injected. All needs attended promptly. Physical assessment done. Fall prevention observed. Safety measures maintained. Bed in low and lock position, alarm on, side rails up x2 for safety. Call light and frequently used items within reach. Continue to monitor and will endorse to the day shift nurse accordingly.
[2019-05-04] MEDS: BLOOD SUGAR DIAGNOSTIC 1 EACH STRIP VI SCH ×4 (06:37→20:32)
[2019-05-04 08:14] VITALS: BP 151/45
[2019-05-04] MEDS: MULTIVITAMINS,THERAPEUTIC TABLET PO SCH (08:40)
[2019-05-04] MEDS: METOPROLOL TARTRATE 25 MG TABLET PO SCH ×2 (08:40→20:22)
[2019-05-04] MEDS: ESCITALOPRAM OXALATE 10 MG TABLET PO SCH (08:40)
[2019-05-04] MEDS: AMLODIPINE 2.5 MG TABLET PO SCH (08:44)
[2019-05-04] MEDS: THIAMINE HCL 100 MG TABLET PO SCH (08:44)
[2019-05-04] MEDS: BENAZEPRIL HCL 10 MG TABLET PO SCH ×2 (08:45→17:13)
[2019-05-04] MEDS: FOLIC ACID 1 MG TABLET PO SCH (08:48)
[2019-05-04 16:55] VITALS: BP 167/47
[2019-05-04] MEDS: INSULIN REGULAR, HUMAN 300 UNIT/3 ML VIAL SQ PRN (17:16)
--- NOTE | 2019-05-04 19:36 | NUR ---
Patient received in bed, AAO x3. Not in acute distress or SOB. Able to make needs known. On room air. VS stable. No complain of pain at this time. Physical assessment done. Fall prevention observed. Safety measures maintained. Bed in low and lock position, alarm on, side rails up x2 for safety. Call light and frequently used items within reach. Continue to monitor. Educated patient to use call light. Call light and frequently used items within reach. Continue to monitor.
[2019-05-04] MEDS: SIMVASTATIN 20 MG TABLET PO SCH (20:21)
[2019-05-04] MEDS: INSULIN GLARGINE,HUM 300 UNITS/3 ML CARTRIDGE SQ SCH (20:26)
[2019-05-04] MEDS: INSULIN REGULAR, HUMAN 300 UNITS/3 ML VIAL SQ PRN (20:28)
[2019-05-04 21:14] VITALS: BP 155/84
[2019-05-05 04:12] VITALS: BP 140/73
--- NOTE | 2019-05-05 04:26 | NUR ---
Patient was stable during the shift and had a good sleep last night. Not in acute distress or SOB. On room air. No complain of pain. All due medications given and well tolerated. Accucheck @2100 BS: 141 covered by 2 units insulin based on sliding scale. Lantus was injected. All needs attended promptly. Physical assessment done. Fall prevention observed. Safety measures maintained. Bed in low and lock position, alarm on, side rails up x2 for safety. Call light and frequently used items within reach. Continue to monitor and will endorse to the day shift nurse accordingly.
[2019-05-05] MEDS: BLOOD SUGAR DIAGNOSTIC 1 EACH STRIP VI SCH ×2 (06:31→12:01)
--- NOTE | 2019-05-05 07:45 | NUR ---
patient is in asleep, no acute distress noted
[2019-05-05 08:00] VITALS: BP 102/50
[2019-05-05] MEDS: FOLIC ACID 1 MG TABLET PO SCH (08:36)
[2019-05-05] MEDS: METOPROLOL TARTRATE 25 MG TABLET PO SCH (08:37)
[2019-05-05] MEDS: MULTIVITAMINS,THERAPEUTIC TABLET PO SCH (08:38)
[2019-05-05] MEDS: THIAMINE HCL 100 MG TABLET PO SCH (08:39)
[2019-05-05] MEDS: BENAZEPRIL HCL 10 MG TABLET PO SCH (08:39)
[2019-05-05] MEDS: AMLODIPINE 2.5 MG TABLET PO SCH (08:40)
[2019-05-05] MEDS: ESCITALOPRAM OXALATE 10 MG TABLET PO SCH (08:43)
[2019-05-05] MEDS: INSULIN REGULAR, HUMAN 300 UNIT/3 ML VIAL SQ PRN (12:07)
[2019-05-05] MEDS ORDERED: INFLUENZA VACCINE 2019-2020 0.5 ML DISP.SYRIN IM ONE (13:00)
--- NOTE | 2019-05-05 14:40 | NUR ---
patient is being discharged home today, brother is aware, patient is in stable condition, meds faxed to pharmacy, instructions and teaching done to patient , flu shot is administered, consent given by patient and his brother name leticia.
[2019-05-05 16:20] VITALS: BP 154/54
--- NOTE | 2019-05-05 16:43 | NUR ---
patient is alert, oriented x4, verbally responsive, no sob, resp even nonlabored,skin warm and dry to touch, patient is in stable condition, discharged home with [facility] ambulance,patient verbalized understanding of medications and discharge instructions, skin intact, patient has his bilateral prothesis on to both legs. no distress noted, belongings accounted and signed, ID band removed.
== END 2019-05-05 16:50 | disposition home health service (06) | DRG 559 ==
PROVIDERS: ADMIT Physical Medicine & Rehabilitation Pain Medicine; ATTEND Physical Medicine & Rehabilitation Pain Medicine
DX: Z47.81 Encounter for orthopedic aftercare following surgical amputation (principal); N17.0 Acute kidney failure with tubular necrosis; I13.0 Hypertensive heart and chronic kidney disease with heart failure and stage 1 through stage 4 chronic kidney disease, or unspecified chronic kidney disease; F23 Brief psychotic disorder; R45.851 Suicidal ideations; D68.59 Other primary thrombophilia; G93.40 Encephalopathy, unspecified; I50.40 Unspecified combined systolic (congestive) and diastolic (congestive) heart failure; N18.9 Chronic kidney disease, unspecified; Z89.511 Acquired absence of right leg below knee; Z89.512 Acquired absence of left leg below knee; E11.22 Type 2 diabetes mellitus with diabetic chronic kidney disease; H54.62 Unqualified visual loss, left eye, normal vision right eye; R53.81 Other malaise; R53.1 Weakness; E11.42 Type 2 diabetes mellitus with diabetic polyneuropathy; E11.51 Type 2 diabetes mellitus with diabetic peripheral angiopathy without gangrene; E11.65 Type 2 diabetes mellitus with hyperglycemia; E78.5 Hyperlipidemia, unspecified; F17.210 Nicotine dependence, cigarettes, uncomplicated; H40.9 Unspecified glaucoma; F32.9 Major depressive disorder, single episode, unspecified
CPT/HCPCS: 36415; 83735; 84100; 85025; 90686; A4663; J1815